=== PATIENT | female | born 1960 | race Caucasian/White ===

== ENCOUNTER 2017-08-20 08:14 | Day surgery (SDC) | payer OTHER ==
[~2017-08-20 08:14] MED LIST: PROPOFOL INJ 200 MG/20 ML VIAL IV ONE
[2017-08-20 10:00] VITALS: BP 95/63
--- NOTE | 2017-08-20 12:36 | Operative Report ---
Operative Report DATE OF SURGERY: 08/20/17 Operative Report: The risks, benefits and alternatives of the procedure including the risks of bleeding, perforation requiring surgery are explained to the patient in detail and informed consent was obtained. Patient was taken back to the endoscopy suite and placed in the left, lateral decubital position. Timeout was called. Propofol medications administered. A rectal examination is done which did not reveal any masses, tears or fissures. An Olympus videoscope was inserted into the patient's rectum. It is carefully guided all the way to the cecum. The cecum was identified by the usual anatomical landmarks of the ileocecal valve as well as the appendiceal office. Prep is good. Photodocumentation was obtained. The scope was then sequentially pulled back via the various segments of the colon including the ascending colon, hepatic flexure, transverse colon, splenic flexure, descending colon finding to the rectosigmoid portions of the colon. Retroflexion maneuvers performed. The risks benefits and alternatives of the procedure explained to the patient in detail and informed consent is obtained.A GIF Olympus video scope was inserted into the patient's mouth and hypopharynx, the esophagus is identified intubated and insufflated, the scope was then advanced through the esophagus stomach and duodenum, retroflexion maneuver is done, the esophagus stomach and first and second portions of the duodenum examined PREOPERATIVE DIAGNOSIS: Anorexia. Weight loss. Change of bowel habits POSTOPERATIVE DIAGNOSIS: Colon polyp with attempted snare polypectomy but no tissue retrieved; the colon polyp is essentially ablated in situ. Internal hemorrhoids. Mild right-sided inflammation status post biopsy. Upper endoscopy reveals esophagitis biopsies obtained to rule out Tavarez's esophagus. Gastritis biopsies obtained to rule out Helicobacter pylori. Duodenitis OPERATION: Colonoscopy with snare polypectomy. Colonoscopy with biopsy. EGD with biopsy SURGEON: MEGAN IQBAL ANESTHESIA: LMAC TISSUE REMOVED OR ALTERED: As described above. COMPLICATIONS: None. ESTIMATED BLOOD LOSS: None. INTRAOPERATIVE FINDINGS: As noted above. PROCEDURE: Patient tolerated procedure well. No immediate postprocedure complications are noted. Patient discharged in good condition. Discharge date August 20, 2017. Discharge diet: Regular. Discharge activity: Regular. 2-3 week follow-up to discuss findings. We will wait on pathology. 5 year surveillance colonoscopy. Patient is instructed to call the office or proceed to the emergency room should there be any further problems or questions.
== END 2017-08-20 09:58 | disposition home or self-care (01) ==
LOC: END 08:14
PROVIDERS: ATTEND Internal Medicine Gastroenterology
PROC: 0DBF8ZX Excision of Right Large Intestine, Via Natural or Artificial Opening Endoscopic, Diagnostic (ICD-10-PCS; 2017-08-20)
PROC: 0DB58ZX Excision of Esophagus, Via Natural or Artificial Opening Endoscopic, Diagnostic (ICD-10-PCS; principal; 2017-08-20 10:30)
PROC: 0DB68ZX Excision of Stomach, Via Natural or Artificial Opening Endoscopic, Diagnostic (ICD-10-PCS; 2017-08-20 10:30)
DX: K20.9 Esophagitis, unspecified (principal); K29.70 Gastritis, unspecified, without bleeding; K29.80 Duodenitis without bleeding; K63.5 Polyp of colon; R63.4 Abnormal weight loss; Z68.21 Body mass index [BMI] 21.0-21.9, adult; M51.36 Other intervertebral disc degeneration, lumbar region; F17.210 Nicotine dependence, cigarettes, uncomplicated; M19.90 Unspecified osteoarthritis, unspecified site; E78.5 Hyperlipidemia, unspecified; E78.00 Pure hypercholesterolemia, unspecified; Z79.899 Other long term (current) drug therapy
CPT/HCPCS: 43239; 45385; 88305 ×2; 88313 ×2; J2704

== ENCOUNTER → 2017-10-10 | Outpatient (CLI) | payer OTHER ==
--- NOTE | 2017-10-10 10:44 | RADIOLOGY REPORT (SQ) ---
EXAM DESCRIPTION: NM HIDA SCAN WITH CCK COMPLETED DATE/TIME: 10/10/2017 10:15 am REASON FOR STUDY: RUQ PAIN (R10.11) R10.11 RIGHT UPPER QUADRANT PAIN COMPARISON: None. RADIONUCLIDE AND DOSE: DOSAGE RADIONUCLIDE: 5 millicuries Tc99m Mebrofenin. DOSAGE CCK: 1.3 micrograms. DOSAGE MORPHINE: Not required. The route of agent administration: Intravenous TECHNIQUE: Serial imaging right upper quadrant up to 60 minutes following injection of radionuclide. CCK injected after gallbladder visualized. LIMITATIONS: None. FINDINGS: LIVER: Normal visualization without areas of photopenia. INTRAHEPATIC BILE DUCTS: Normal size and no delay in visualization. COMMON BILE DUCT: Normal without dilatation. GALLBLADDER: Normal visualization. Calculated ejection fraction of 6%. Normal range is greater ysabel n 35%. PHYSICAL RESPONSE: Patients presenting complaint was mildly reproduced. OTHER: No other significant finding. IMPRESSION: Abnormal gallbladder ejection fraction. TECHNICAL DOCUMENTATION: JOB ID: [id number] [employer]- All Rights Reserved
== END ==
LOC: RAD 07:35
PROVIDERS: ATTEND Family Medicine
DX: R10.11 Right upper quadrant pain (principal)
CPT/HCPCS: 78227; A9537; Q9969; J2805

== ENCOUNTER 2017-10-30 12:09 | Inpatient (IN) | payer OTHER ==
[~2017-10-30 12:09] MED LIST changes: +ACETAMINOPHEN 325 MG TABLET PO PRN; +DEXAMETHASONE SOD PHOSPHATE INJ 4 MG/1 ML VIAL ONE; +GLYCOPYRROLATE INJ 0.4 MG/2 ML VIAL ONE; +LEVOFLOXACIN 500 MG/D5W RTU 500 MG/100 ML RTUPB IV PRN; +NEOSTIGMINE METHYLSULFATE 10 MG/10 ML VIAL ONE; +ONDANSETRON HCL INJ/PF 4 MG/2 ML SDV ONE; -PROPOFOL INJ 200 MG/20 ML VIAL IV ONE; +ROCURONIUM BROMIDE INJ 50 MG/5 ML VIAL IV ONE
[2017-10-30] MEDS ORDERED: BUPIVACAINE HCL 0.25 % INJ/PF (2.5 MG/1 ML) 30 ML VIAL ONE (13:26)
[2017-10-30 14:12] LABS: APPEARANCE,URINE CLEAR; BILIRUBIN,URINE NEGATIVE (NEGATIVE); GLUCOSE, URINE NEGATIVE (NEGATIVE); KETONES,URINE 80 mg/dL (NEGATIVE); LEUKOCYTE ESTERASE,URINE NEGATIVE (NEGATIVE); NITRITE,URINE NEGATIVE (NEGATIVE); PROTEIN,URINE NEGATIVE (NEGATIVE); URINE SPECIFIC GRAVITY 1.025; UROBILINOGEN,URINE NEGATIVE mg/dL (<2.0)
[2017-10-30] MEDS ORDERED: ALBUTEROL SULFATE 0.083% NEB 2.5 MG/3 ML AMPUL NEB ONE (14:34)
[2017-10-30 14:51] LABS: ABSOLUTE BASOPHILS # (AUTO) 0.1 10^3/uL (0.0-0.2); ABSOLUTE EOSINOPHILS # (AUTO) 0.1 10^3/uL (0.0-0.6); ABSOLUTE LYMPHOCYTES (AUTO) 2.7 10^3/uL (0.5-4.7); ABSOLUTE MONOCYTES (AUTO) 0.4 10^3/uL (0.1-1.4); BASOPHILS % (AUTO) 0.9 % (0-2); EOSINOPHILS % (AUTO) 1.9 % (0-6); HEMATOCRIT 39.2 % (36.0-47.0); HEMOGLOBIN 13.7 g/dL (12.0-15.5); HGB HCT DIFFERENCE 1.9; LYMPHOCYTES % (AUTO) 36.9 % (13-45); MEAN CORPUSCULAR VOLUME 89 fl (80-97); MONOCYTES % (AUTO) 5.6 % (3-13); RED BLOOD COUNT 4.42 10^6/uL (3.72-5.28); RED CELL DISTRIBUTION WIDTH 13.5 % (11.5-14.0); SEGMENTED NEUTROPHILS % (AUTO) 54.7 % (42-78); WHITE BLOOD COUNT 7.4 10^3/uL (4.0-10.5)
[2017-10-30 15:17] LABS: ALANINE AMINOTRANSFERASE 28 U/L (9-52); ALBUMIN 4.3 g/dL (3.5-5.0); ALKALINE PHOSPHATASE 71 U/L (38-126); ANION GAP 13 (5-19); ASPARTATE AMINO TRANSFERASE 17 U/L (14-36); BILIRUBIN,DIRECT 0.4 mg/dL (0.0-0.4); BILIRUBIN,TOTAL 0.6 mg/dL (0.2-1.3); BLOOD UREA NITROGEN 14 mg/dL (7-20); CALCIUM 9.8 mg/dL (8.4-10.2); CARBON DIOXIDE 21 mmol/L (22-30); CHLORIDE 108 mmol/L (98-107); CREATININE RESULT 0.79 mg/dL (0.52-1.25); GLUCOSE 80 mg/dL (75-110); LIPASE 1190.4 U/L (23-300); SODIUM 142.1 mmol/L (137-145)
[2017-10-30] MEDS ORDERED: HYDROMORPHONE HCL INJ/PF 2 MG/ML AMPULE ONE (16:06)
[2017-10-30] MEDS ORDERED: ACETAMINOPHEN 0 ML IV ONE (16:06)
[2017-10-30] MEDS ORDERED: PROPOFOL INJ 200 MG/20 ML VIAL IV ONE (16:06)
[2017-10-30] MEDS ORDERED: MIDAZOLAM 2 MG/2 ML INJ ONE (16:06)
[2017-10-30] MEDS ORDERED: EPHEDRINE SULFATE INJ 50 MG/1 ML AMPULE ONE (16:06)
[2017-10-30] MEDS ORDERED: FENTANYL CITRATE INJ/PF 100 MCG/2 ML AMPUL ONE ×2 (16:07)
[2017-10-30] MEDS ORDERED: DEXTROSE 5%-1/2 NORMAL SALINE 1,000 ML IV PRN (16:30)
[2017-10-30] MEDS ORDERED: GLUCAGON,HUMAN RECOMB 1 MG INJ SUBCUT PRN (16:30)
[2017-10-30] MEDS ORDERED: HYDROMORPHONE HCL INJ/PF 2 MG/ML AMPULE IV PRN (16:30)
[2017-10-30] MEDS ORDERED: DEXTROSE 50%-WATER 25 GM/50 ML DISP.SYRIN IV PRN ×2 (16:30)
[2017-10-30] MEDS ORDERED: DEXTROSE 40% GEL 15 GM TUBE PO PRN ×2 (16:30)
--- NOTE | 2017-10-30 16:30 | PDOC H&P ---
History of Present Illness Admission Date/PCP: JOSE L MERRILL MD Patient complains of: Abdominal pain History of Present Illness: KAREN BIRMINGHAM is a 57 year old female Who has been experiencing epigastric and right upper quadrant abdominal pain radiating to her back for approximately a year. She has had associated with weight loss. She has had an extensive workup including upper and lower endoscopy ultrasound CT scan and CCK HIDA study. Upper endoscopy was only remarkable for mild duodenitis. CT scan only demonstrated mild decrease attenuation of the liver. Pancreas appeared normal on the CT scan. Patient notes that her ultrasound was read as normal. However CCK HIDA study demonstrated an ejection fraction of 5% reproduction of her symptoms. Patient has a history of alcohol abuse in the past but has not drank in over 8 years. She has had no history of pancreatitis in the past. Patient was scheduled today for a laparoscopic cholecystectomy for biliary dyskinesia however on preoperative laboratory testing she was noted with elevated lipase of 1190. Her liver function studies were completely normal. She does note increased epigastric abdominal pain over the last several days. He denies any shortness of breath and she denies any fevers. Past Medical History Cardiac Medical History: Denies: Coronary Artery Disease, Myocardial Infarction, Hypertension Pulmonary Medical History: Denies: Asthma, Bronchitis, Chronic Obstructive Pulmonary Disease (COPD), Pneumonia Neurological Medical History: Denies: Seizures Musculoskeltal Medical History: Reports: Arthritis - RICARDO. HANDS Hematology: Denies: Anemia Past Surgical History Past Surgical History: Reports: Tubal Ligation Social History Smoking Status: Former Smoker Frequency of Alcohol Use: None - Prior history of alcohol abuse but not for the last 8 years. Family History Family History: Reviewed & Not Pertinent Parental Family History Reviewed: No Children Family History Reviewed: No Sibling(s) Family History Reviewed.: No Medication/Allergy Home Medications: Alprazolam [Xanax] 1 tab PO DAILY 08/16/17 Tramadol HCl [Conzip] 100 mg PO ASDIR PRN 09/24/17 Aspirin [Aspirin EC] 81 mg PO DAILY 10/30/17 Allergies/Adverse Reactions: Penicillins Allergy (Intermediate, Verified 10/30/17 13:50) Hives Physical Exam Vital Signs: Temp Pulse Resp BP Pulse Ox 98.1 F 72 14 112/83 98 10/30/17 13:30 10/30/17 14:30 10/30/17 14:30 10/30/17 13:30 10/30/17 14:30 Intake & Output 10/29/17 10/30/17 10/31/17 06:59 06:59 06:59 Intake Total 0 Balance 0 Weight 62.14 kg 62.14 kg General appearance: PRESENT: no acute distress, cooperative Eye exam: PRESENT: conjunctiva pink Neck exam: PRESENT: other - Supple and nontender. Respiratory exam: PRESENT: clear to auscultation ricardo Cardiovascular exam: PRESENT: RRR GI/Abdominal exam: PRESENT: other - Soft, nondistended, mild diffuse abdominal tenderness without peritoneal signs. Extremities exam: PRESENT: other - No swelling. Neurological exam: PRESENT: alert, awake Psychiatric exam: PRESENT: appropriate affect Skin exam: PRESENT: warm Results Laboratory Results: 10/30/17 14:28 10/30/17 14:28 10/30/17 10/30/17 10/30/17 13:30 14:28 14:28 WBC 7.4 RBC 4.42 Hgb 13.7 Hct 39.2 MCV 89 MCH 31.0 MCHC 35.0 RDW 13.5 Plt Count 249 Seg Neutrophils % 54.7 Lymphocytes % 36.9 Monocytes % 5.6 Eosinophils % 1.9 Basophils % 0.9 Absolute Neutrophils 4.0 Absolute Lymphocytes 2.7 Absolute Monocytes 0.4 Absolute Eosinophils 0.1 Absolute Basophils 0.1 Sodium 142.1 Potassium 4.0 Chloride 108 H Carbon Dioxide 21 L Anion Gap 13 BUN 14 Creatinine 0.79 Est GFR ( Amer) > 60 Est GFR (Non-Af Amer) > 60 Glucose 80 Calcium 9.8 Total Bilirubin 0.6 AST 17 ALT 28 Alkaline Phosphatase 71 Total Protein 7.0 Albumin 4.3 Lipase 1190.4 H Urine Color YELLOW Urine Appearance CLEAR Urine pH 5.0 Ur Specific [place] 1.025 Urine Protein NEGATIVE Urine Glucose (UA) NEGATIVE Urine Ketones 80 H Urine Blood NEGATIVE Urine Nitrite NEGATIVE Ur Leukocyte Esterase NEGATIVE Urine WBC (Auto) 0 Urine RBC (Auto) 0 Assessment & Plan - Diagnosis (1) Pancreatitis Qualifiers: Chronicity: acute Pancreatitis type: biliary Is this a current diagnosis for this admission?: Yes Plan: In light of the marked elevation of her lipase, the most likely etiology is biliary Pancreatitis. She has no evidence of pancreatic calcifications therefore I do not think she has chronic pancreatitis. She has a remote history of alcohol abuse but none for the last 8 years. With her evident pancreatitis I will admit the patient for IV fluids, IV pain control, bowel rest. When her lipase has come down I will plan laparoscopic cholecystectomy. I will check triglyceride level.
[2017-10-30] MEDS: ONDANSETRON HCL INJ/PF 4 MG/2 ML SDV IV PRN (18:46)
[2017-10-31] MEDS: ONDANSETRON HCL INJ/PF 4 MG/2 ML SDV IV PRN ×2 (03:57→18:33)
[2017-10-31 06:03] LABS: HEMATOCRIT 40.8 % (36.0-47.0); HEMOGLOBIN 13.9 g/dL (12.0-15.5); HGB HCT DIFFERENCE 0.9; MEAN CORPUSCULAR HEMOGLOBIN 30.2 pg (27.0-33.4); MEAN CORPUSCULAR VOLUME 89 fl (80-97); RED BLOOD COUNT 4.59 10^6/uL (3.72-5.28); RED CELL DISTRIBUTION WIDTH 13.6 % (11.5-14.0); WHITE BLOOD COUNT 7.7 10^3/uL (4.0-10.5)
[2017-10-31 06:05] LABS: ALANINE AMINOTRANSFERASE 25 U/L (9-52); ALKALINE PHOSPHATASE 69 U/L (38-126); ANION GAP 14 (5-19); ASPARTATE AMINO TRANSFERASE 23 U/L (14-36); BILIRUBIN,DIRECT 0.2 mg/dL (0.0-0.4); BILIRUBIN,TOTAL 0.5 mg/dL (0.2-1.3); BLOOD UREA NITROGEN 13 mg/dL (7-20); CALCIUM 9.2 mg/dL (8.4-10.2); CARBON DIOXIDE 23 mmol/L (22-30); CHLORIDE 109 mmol/L (98-107); CHOLESTEROL 249.56 mg/dL (0-200); CREATININE RESULT 0.79 mg/dL (0.52-1.25); Direct HDL 47 mg/dL (>40); GLUCOSE 82 mg/dL (75-110); LIPASE 1697.4 U/L (23-300); POTASSIUM 3.9 mmol/L (3.6-5.0); SODIUM 145.6 mmol/L (137-145); TOTAL PROTEIN 6.8 g/dL (6.3-8.2); TRIGLYCERIDES 123 mg/dL (<150)
[2017-10-31 06:16] LABS: DIRECT LDL 164 mg/dL (<100)
[2017-10-31] MEDS ORDERED: KETOROLAC TROMETHAMINE INJ/PF 30 MG/1 ML SDV IV PRN (08:08)
[2017-10-31] MEDS: ASPIRIN 81 MG TABLET, ENT COATED PO SCH (09:37)
--- NOTE | 2017-10-31 11:12 | PDOC CONSULTATION ---
Consultation Consult Date: 10/31/17 Attending physician:: MEGAN IQBAL Consult reason:: Abdominal pain History of Present Illness Admission Date/PCP: JOSE L MERRILL MD History of Present Illness: patient was scheduled for possible lap cholecystectomy, labs was noted to have an elevated lipase no other LFT abnormalities patient does not have biliary dilation was admitted on the surgical service waiting for resolution of the patient's lipase likely has elevated lipase to possible passage of gallstone has had EGD and colonoscopy in the past no hematemesis no rectal bleeding Past Medical History Cardiac Medical History: Denies: Coronary Artery Disease, Myocardial Infarction, Hypertension Pulmonary Medical History: Denies: Asthma, Bronchitis, Chronic Obstructive Pulmonary Disease (COPD), Pneumonia Neurological Medical History: Denies: Seizures Musculoskeltal Medical History: Reports: Arthritis - KASHIF. HANDS Hematology: Denies: Anemia Past Surgical History Past Surgical History: Reports: Tubal Ligation Social History Information Source: Patient Lives with: Spouse/Significant other Smoking Status: Never Smoker Frequency of Alcohol Use: None - Prior history of alcohol abuse but not for the last 8 years. Family History Family History: Reviewed & Not Pertinent Parental Family History Reviewed: Yes Children Family History Reviewed: Unknown Sibling(s) Family History Reviewed.: Unknown Medication/Allergy Home Medications: Alprazolam [Xanax] 1 tab PO DAILY 08/16/17 Tramadol HCl [Conzip] 100 mg PO ASDIR PRN 09/24/17 Aspirin [Aspirin EC] 81 mg PO DAILY 10/30/17 Allergies/Adverse Reactions: Penicillins Allergy (Intermediate, Verified 10/30/17 13:50) Hives Review of Systems Constitutional: ABSENT: fever(s), headache(s), night sweats, weakness Ears: ABSENT: hearing changes Cardiovascular: ABSENT: edema, orthropnea Respiratory: ABSENT: dyspnea, hemoptysis Gastrointestinal: ABSENT: diarrhea, heartburn, nausea, vomiting Genitourinary: ABSENT: dysuria, hematuria Musculoskeletal: ABSENT: deformity, joint swelling Neurological: ABSENT: syncope, tingling, tremor(s), vertigo Endocrine: ABSENT: polydipsia, polyphagia, polyuria Hematologic/Lymphatic: ABSENT: easy bruising Physical Exam Vital Signs: Temp Pulse Resp BP Pulse Ox 97.4 F 62 16 114/68 100 10/31/17 08:00 10/31/17 08:00 10/31/17 08:00 10/31/17 08:00 10/31/17 08:00 Intake & Output 10/30/17 10/31/17 11/01/17 06:59 06:59 06:59 Intake Total 0 Output Total 300 Balance -300 Weight 62.14 kg 63.3 kg General appearance: PRESENT: no acute distress, well-developed, well-nourished Head exam: PRESENT: atraumatic, normocephalic Eye exam: PRESENT: EOMI, PERRLA. ABSENT: nystagmus, scleral icterus Mouth exam: PRESENT: moist, neck supple Throat exam: ABSENT: tonsillar exudate, tonsillogmegaly Neck exam: ABSENT: meningismus, tenderness, thyromegaly Respiratory exam: PRESENT: symmetrical, unlabored. ABSENT: tachypnea, wheezes Cardiovascular exam: PRESENT: RRR, +S1, +S2 GI/Abdominal exam: PRESENT: soft. ABSENT: rebound, rigid, tenderness Extremities exam: ABSENT: joint swelling, pedal edema Musculoskeletal exam: PRESENT: full ROM Neurological exam: PRESENT: oriented to time, oriented to situation, reflexes normal, CN II-XII grossly intact Focused psych exam: ABSENT: restlessness Skin exam: PRESENT: normal color. ABSENT: mottled, pallor, urticaria, vesicles Results Laboratory Results: 10/31/17 05:00 10/31/17 05:00 10/30/17 10/30/17 10/30/17 13:30 14:28 14:28 WBC 7.4 RBC 4.42 Hgb 13.7 Hct 39.2 MCV 89 MCH 31.0 MCHC 35.0 RDW 13.5 Plt Count 249 Seg Neutrophils % 54.7 Lymphocytes % 36.9 Monocytes % 5.6 Eosinophils % 1.9 Basophils % 0.9 Absolute Neutrophils 4.0 Absolute Lymphocytes 2.7 Absolute Monocytes 0.4 Absolute Eosinophils 0.1 Absolute Basophils 0.1 Sodium 142.1 Potassium 4.0 Chloride 108 H Carbon Dioxide 21 L Anion Gap 13 BUN 14 Creatinine 0.79 Est GFR ( Amer) > 60 Est GFR (Non-Af Amer) > 60 Glucose 80 Calcium 9.8 Total Bilirubin 0.6 AST 17 ALT 28 Alkaline Phosphatase 71 Total Protein 7.0 Albumin 4.3 Triglycerides Cholesterol LDL Cholesterol Direct VLDL Cholesterol HDL Cholesterol Lipase 1190.4 H Urine Color YELLOW Urine Appearance CLEAR Urine pH 5.0 Ur Specific [place] 1.025 Urine Protein NEGATIVE Urine Glucose (UA) NEGATIVE Urine Ketones 80 H Urine Blood NEGATIVE Urine Nitrite NEGATIVE Ur Leukocyte Esterase NEGATIVE Urine WBC (Auto) 0 Urine RBC (Auto) 0 10/31/17 10/31/17 05:00 05:00 WBC 7.7 RBC 4.59 Hgb 13.9 Hct 40.8 MCV 89 MCH 30.2 MCHC 34.0 RDW 13.6 Plt Count 220 Seg Neutrophils % Lymphocytes % Monocytes % Eosinophils % Basophils % Absolute Neutrophils Absolute Lymphocytes Absolute Monocytes Absolute Eosinophils Absolute Basophils Sodium 145.6 H Potassium 3.9 Chloride 109 H Carbon Dioxide 23 Anion Gap 14 BUN 13 Creatinine 0.79 Est GFR ( Amer) > 60 Est GFR (Non-Af Amer) > 60 Glucose 82 Calcium 9.2 Total Bilirubin 0.5 AST 23 ALT 25 Alkaline Phosphatase 69 Total Protein 6.8 Albumin 4.0 Triglycerides 123 Cholesterol 249.56 H LDL Cholesterol Direct 164 H VLDL Cholesterol 25.0 HDL Cholesterol 47 Lipase 1697.4 H Urine Color Urine Appearance Urine pH Ur Specific [place] Urine Protein Urine Glucose (UA) Urine Ketones Urine Blood Urine Nitrite Ur Leukocyte Esterase Urine WBC (Auto) Urine RBC (Auto) Assessment & Plan - Diagnosis (1) Pancreatitis Qualifiers: Chronicity: acute Pancreatitis type: biliary Is this a current diagnosis for this admission?: Yes Plan: agree with planned admission does not require ERCP since normal LFT's as per surgical recommendations to proceed with surgery once pancreatitis has resolved patient could have had passage of stone with biliary obstruction - Time Time Spent: 50 to 70 Minutes
--- NOTE | 2017-10-31 12:10 | PDOC PROGRESS REPORT ---
Subjective Progress Note for:: 10/31/17 Subjective:: Having some abdominal pain but has improved from yesterday. Reason For Visit: K82.8 OTHER SPECIFIED DISEASES OF GALLBLADD, R10.9 Physical Exam Vital Signs: Temp Pulse Resp BP Pulse Ox 97.4 F 62 16 114/68 100 10/31/17 08:00 10/31/17 08:00 10/31/17 08:00 10/31/17 08:00 10/31/17 08:00 Intake & Output 10/30/17 10/31/17 11/01/17 06:59 06:59 06:59 Intake Total 0 Output Total 300 Balance -300 Weight 62.14 kg 63.3 kg General appearance: PRESENT: no acute distress, cooperative Respiratory exam: PRESENT: clear to auscultation ricardo Cardiovascular exam: PRESENT: RRR GI/Abdominal exam: PRESENT: other - Soft, nondistended, mild diffuse abdominal tenderness without peritoneal signs. Extremities exam: PRESENT: other - No swelling Results Laboratory Results: 10/31/17 05:00 10/31/17 05:00 10/30/17 10/30/17 10/30/17 13:30 14:28 14:28 WBC 7.4 RBC 4.42 Hgb 13.7 Hct 39.2 MCV 89 MCH 31.0 MCHC 35.0 RDW 13.5 Plt Count 249 Seg Neutrophils % 54.7 Lymphocytes % 36.9 Monocytes % 5.6 Eosinophils % 1.9 Basophils % 0.9 Absolute Neutrophils 4.0 Absolute Lymphocytes 2.7 Absolute Monocytes 0.4 Absolute Eosinophils 0.1 Absolute Basophils 0.1 Sodium 142.1 Potassium 4.0 Chloride 108 H Carbon Dioxide 21 L Anion Gap 13 BUN 14 Creatinine 0.79 Est GFR ( Amer) > 60 Est GFR (Non-Af Amer) > 60 Glucose 80 Calcium 9.8 Total Bilirubin 0.6 AST 17 ALT 28 Alkaline Phosphatase 71 Total Protein 7.0 Albumin 4.3 Triglycerides Cholesterol LDL Cholesterol Direct VLDL Cholesterol HDL Cholesterol Lipase 1190.4 H Urine Color YELLOW Urine Appearance CLEAR Urine pH 5.0 Ur Specific [place] 1.025 Urine Protein NEGATIVE Urine Glucose (UA) NEGATIVE Urine Ketones 80 H Urine Blood NEGATIVE Urine Nitrite NEGATIVE Ur Leukocyte Esterase NEGATIVE Urine WBC (Auto) 0 Urine RBC (Auto) 0 10/31/17 10/31/17 05:00 05:00 WBC 7.7 RBC 4.59 Hgb 13.9 Hct 40.8 MCV 89 MCH 30.2 MCHC 34.0 RDW 13.6 Plt Count 220 Seg Neutrophils % Lymphocytes % Monocytes % Eosinophils % Basophils % Absolute Neutrophils Absolute Lymphocytes Absolute Monocytes Absolute Eosinophils Absolute Basophils Sodium 145.6 H Potassium 3.9 Chloride 109 H Carbon Dioxide 23 Anion Gap 14 BUN 13 Creatinine 0.79 Est GFR ( Amer) > 60 Est GFR (Non-Af Amer) > 60 Glucose 82 Calcium 9.2 Total Bilirubin 0.5 AST 23 ALT 25 Alkaline Phosphatase 69 Total Protein 6.8 Albumin 4.0 Triglycerides 123 Cholesterol 249.56 H LDL Cholesterol Direct 164 H VLDL Cholesterol 25.0 HDL Cholesterol 47 Lipase 1697.4 H Urine Color Urine Appearance Urine pH Ur Specific [place] Urine Protein Urine Glucose (UA) Urine Ketones Urine Blood Urine Nitrite Ur Leukocyte Esterase Urine WBC (Auto) Urine RBC (Auto) Assessment & Plan - Diagnosis (1) Pancreatitis Qualifiers: Chronicity: acute Pancreatitis type: biliary Is this a current diagnosis for this admission?: Yes Plan: Abdominal exam has improved but her lipase has increased even more today. Will obtain an MRCP today. hold off laparoscopic cholecystectomy.
--- NOTE | 2017-10-31 14:31 | RADIOLOGY REPORT (SQ) ---
EXAM DESCRIPTION: MRI ABDOMEN WITHOUT COMPLETED DATE/TIME: 10/31/2017 1:36 pm REASON FOR STUDY: Please perform MRCP. Patient with pancreatitis K82.8 OTHER SPECIFIED DISEASES OF GALLBLADDER R10.9 UNSPECIFIED ABDOMINAL PAIN COMPARISON: Outside ultrasound report 10/02/2017 Hepatobiliary scan 10/10/2017 TECHNIQUE: Noncontrast MRCP. Source and MIP images reviewed. LIMITATIONS: None. FINDINGS: GALLBLADDER: Normal. INTRAHEPATIC DUCTS: Nondilated. EXTRAHEPATIC DUCTS: Common duct is normal caliber. No dilatation of the pancreatic duct. No ductal filling defects noted. PANCREAS: Generally homogeneous, no gross mass or significant signal alteration. No surrounding infl ammatory changes or fluid. Pancreatic duct is normal. LIVER, SPLEEN, KIDNEYS, ADRENALS: No significant abnormality. VESSELS: No evidence of aneurysm. Grossly appropriate flow voids in the major vascular structures. LUNG BASES: Grossly clear. OTHER: There is a small gastric fundal diverticulum on axial CT image 5. Hemangioma T10 vertebral remigio dy. Bilateral L4-5 facet arthropathy IMPRESSION: NORMAL HEPATOBILIARY SYSTEM. NO STONES OR COMMON DUCT ABNORMALITIES. NO MRI EVIDENCE OF ACUTE PANCREATITIS TECHNICAL DOCUMENTATION: JOB ID: [id number] [employer]- All Rights Reserved
[2017-10-31] MEDS: ENOXAPARIN SODIUM INJ 40 MG/0.4 ML DISP.SYRIN SUBCUT SCH (14:42)
[2017-11-01 05:44] LABS: ALANINE AMINOTRANSFERASE 27 U/L (9-52); ALBUMIN 4.1 g/dL (3.5-5.0); ALKALINE PHOSPHATASE 68 U/L (38-126); ANION GAP 11 (5-19); ASPARTATE AMINO TRANSFERASE 20 U/L (14-36); BILIRUBIN,DIRECT 0.2 mg/dL (0.0-0.4); BILIRUBIN,TOTAL 0.5 mg/dL (0.2-1.3); BLOOD UREA NITROGEN 9 mg/dL (7-20); CALCIUM 9.3 mg/dL (8.4-10.2); CARBON DIOXIDE 22 mmol/L (22-30); CHLORIDE 110 mmol/L (98-107); CREATININE RESULT 0.78 mg/dL (0.52-1.25); GLUCOSE 95 mg/dL (75-110); LIPASE 467.3 U/L (23-300); POTASSIUM 4.1 mmol/L (3.6-5.0); SODIUM 143.4 mmol/L (137-145); TOTAL PROTEIN 6.7 g/dL (6.3-8.2)
--- NOTE | 2017-11-01 07:31 | PDOC PROGRESS REPORT ---
Subjective Progress Note for:: 11/01/17 Subjective:: no significant events overnight MRCP is negative lipase has trended down should be able to proceed with lap Katie denies any diarrhea there is no fever or chills CBC remains in the normal range Reason For Visit: K82.8 OTHER SPECIFIED DISEASES OF GALLBLADD, R10.9 Physical Exam Vital Signs: Temp Pulse Resp BP Pulse Ox 97.6 F 53 L 17 110/74 100 10/31/17 23:21 10/31/17 23:21 10/31/17 23:21 10/31/17 23:21 10/31/17 23:21 Intake & Output 10/31/17 11/01/17 11/02/17 06:59 06:59 06:59 Intake Total 0 900 Output Total 300 Balance -300 900 Weight 63.3 kg 83.4 kg General appearance: PRESENT: no acute distress, well-developed, well-nourished Head exam: PRESENT: atraumatic, normocephalic Eye exam: PRESENT: EOMI, PERRLA. ABSENT: periorbital swelling, scleral icterus Mouth exam: PRESENT: moist Throat exam: ABSENT: tonsillar exudate, tonsillogmegaly Neck exam: ABSENT: meningismus, tenderness, thyromegaly Respiratory exam: PRESENT: symmetrical, unlabored. ABSENT: tachypnea, wheezes Cardiovascular exam: PRESENT: RRR, +S1, +S2 GI/Abdominal exam: PRESENT: soft. ABSENT: rebound, rigid, tenderness Extremities exam: ABSENT: joint swelling Musculoskeletal exam: PRESENT: full ROM Neurological exam: PRESENT: alert, awake, oriented to time, oriented to situation, CN II-XII grossly intact Skin exam: PRESENT: normal color. ABSENT: mottled, pallor, petechiae, urticaria , vesicles Results Laboratory Results: 10/31/17 05:00 11/01/17 04:55 11/01/17 04:55 Sodium 143.4 Potassium 4.1 Chloride 110 H Carbon Dioxide 22 Anion Gap 11 BUN 9 Creatinine 0.78 Est GFR ( Amer) > 60 Est GFR (Non-Af Amer) > 60 Glucose 95 Calcium 9.3 Total Bilirubin 0.5 AST 20 ALT 27 Alkaline Phosphatase 68 Total Protein 6.7 Albumin 4.1 Lipase 467.3 H Impressions: Abdomen MRI 10/31/17 00:00 IMPRESSION: NORMAL HEPATOBILIARY SYSTEM. NO STONES OR COMMON DUCT ABNORMALITIES. NO MRI EVIDENCE OF ACUTE PANCREATITIS Assessment & Plan - Diagnosis (1) Pancreatitis Qualifiers: Chronicity: acute Pancreatitis type: biliary Is this a current diagnosis for this admission?: Yes (2) Biliary dyskinesia Plan: should be able to proceed with surgery her lipase is trending down MRCP is negative and no signs of cholangitis will let surgery decide on appropriate timing - Time Time Spent with patient: 15-24 minutes
--- NOTE | 2017-11-01 09:31 | PDOC PROGRESS REPORT ---
Subjective Progress Note for:: 11/01/17 Subjective:: Abdomen feels much better. Denies any abdominal pain. Reason For Visit: K82.8 OTHER SPECIFIED DISEASES OF GALLBLADD, R10.9 Physical Exam Vital Signs: Temp Pulse Resp BP Pulse Ox 97.6 F 58 L 16 117/69 99 11/01/17 07:53 11/01/17 07:53 11/01/17 07:53 11/01/17 07:53 11/01/17 07:53 Intake & Output 10/31/17 11/01/17 11/02/17 06:59 06:59 06:59 Intake Total 0 900 Output Total 300 Balance -300 900 Weight 63.3 kg 83.4 kg General appearance: PRESENT: no acute distress, cooperative Respiratory exam: PRESENT: clear to auscultation ricardo Cardiovascular exam: PRESENT: RRR GI/Abdominal exam: PRESENT: other - Soft, nondistended, nontender to palpation. Results Laboratory Results: 10/31/17 05:00 11/01/17 04:55 11/01/17 04:55 Sodium 143.4 Potassium 4.1 Chloride 110 H Carbon Dioxide 22 Anion Gap 11 BUN 9 Creatinine 0.78 Est GFR ( Amer) > 60 Est GFR (Non-Af Amer) > 60 Glucose 95 Calcium 9.3 Total Bilirubin 0.5 AST 20 ALT 27 Alkaline Phosphatase 68 Total Protein 6.7 Albumin 4.1 Lipase 467.3 H Impressions: Abdomen MRI 10/31/17 00:00 IMPRESSION: NORMAL HEPATOBILIARY SYSTEM. NO STONES OR COMMON DUCT ABNORMALITIES. NO MRI EVIDENCE OF ACUTE PANCREATITIS Assessment & Plan - Diagnosis (1) Pancreatitis Qualifiers: Chronicity: acute Pancreatitis type: biliary Is this a current diagnosis for this admission?: Yes Plan: Although lipase is still elevated, this level has markedly diminished and she is pain-free all consistent with resolved pancreatitis. MRCP demonstrated normal-appearing pancreas with no ductal abnormalities. Her clinical course is most consistent with sludge pancreatitis. Will proceed with laparoscopic cholecystectomy. Patient understands the risk and benefits of the procedure including risk of possibility of conversion to an open procedure, risk of infection, bleeding, common bile duct and intestinal injury, postcholecystectomy diarrhea, and mistaken diagnosis. Patient understands and agrees to proceed.
[2017-11-01] MEDS: ENOXAPARIN SODIUM INJ 40 MG/0.4 ML DISP.SYRIN SUBCUT SCH (09:51)
[2017-11-01] MEDS: ASPIRIN 81 MG TABLET, ENT COATED PO SCH (09:51)
[2017-11-01] MEDS ORDERED: LEVOFLOXACIN 750 MG/D5W RTU 750 MG/150 ML RTUPB IV ONE (11:13)
[2017-11-01] MEDS ORDERED: BUPIVACAINE HCL 0.25 % INJ/PF (2.5 MG/1 ML) 30 ML VIAL ONE (11:15)
[2017-11-01] MEDS ORDERED: EPHEDRINE SULFATE INJ 50 MG/1 ML AMPULE ONE (11:33)
[2017-11-01] MEDS ORDERED: HYDROMORPHONE HCL INJ/PF 2 MG/ML AMPULE ONE (11:33)
[2017-11-01] MEDS ORDERED: ACETAMINOPHEN 100 ML IV ONE (11:33)
[2017-11-01] MEDS ORDERED: PROPOFOL INJ 200 MG/20 ML VIAL IV ONE (11:33)
[2017-11-01] MEDS ORDERED: FENTANYL CITRATE INJ/PF 100 MCG/2 ML AMPUL ONE (11:33)
[2017-11-01] MEDS ORDERED: MIDAZOLAM 2 MG/2 ML INJ ONE (11:33)
[2017-11-01] MEDS ORDERED: FENTANYL CITRATE INJ/PF 100 MCG/2 ML AMPUL IV PRN ×3 (13:17)
[2017-11-01] MEDS ORDERED: PROMETHAZINE HCL INJ 25 MG/1 ML VIAL IV PRN (13:17)
[2017-11-01] MEDS ORDERED: DIPHENHYDRAMINE HCL 50 MG/ML VIAL IV PRN (13:17)
[2017-11-01] MEDS ORDERED: MEPERIDINE HCL/PF INJ 25 MG/1 ML DISP.SYRIN IV PRN (13:17)
[2017-11-01] MEDS ORDERED: PROMETHAZINE HCL INJ 25 MG/1 ML VIAL ONE (13:59)
[2017-11-01] MEDS ORDERED: ONDANSETRON HCL INJ/PF 4 MG/2 ML SDV ONE (14:38)
--- NOTE | 2017-11-01 20:12 | PDOC PROGRESS REPORT ---
Subjective Progress Note for:: 11/01/17 Subjective:: Patient feels well. No abdominal pain. Wants to go home. Reason For Visit: K82.8 OTHER SPECIFIED DISEASES OF GALLBLADD, R10.9 Physical Exam Vital Signs: Temp Pulse Resp BP Pulse Ox 97 F L 70 17 110/65 98 11/01/17 18:50 11/01/17 18:50 11/01/17 18:50 11/01/17 18:50 11/01/17 18:50 Intake & Output 10/31/17 11/01/17 11/02/17 06:59 06:59 06:59 Intake Total 0 900 1600 Output Total 300 320 Balance -713 588 3934 Weight 63.3 kg 83.4 kg General appearance: PRESENT: no acute distress, cooperative Respiratory exam: PRESENT: clear to auscultation ricardo Cardiovascular exam: PRESENT: RRR GI/Abdominal exam: PRESENT: other - Soft, nondistended, nontender to palpation. Results Laboratory Results: 10/31/17 05:00 11/01/17 04:55 11/01/17 04:55 Sodium 143.4 Potassium 4.1 Chloride 110 H Carbon Dioxide 22 Anion Gap 11 BUN 9 Creatinine 0.78 Est GFR ( Amer) > 60 Est GFR (Non-Af Amer) > 60 Glucose 95 Calcium 9.3 Total Bilirubin 0.5 AST 20 ALT 27 Alkaline Phosphatase 68 Total Protein 6.7 Albumin 4.1 Lipase 467.3 H Impressions: Abdomen MRI 10/31/17 00:00 IMPRESSION: NORMAL HEPATOBILIARY SYSTEM. NO STONES OR COMMON DUCT ABNORMALITIES. NO MRI EVIDENCE OF ACUTE PANCREATITIS Assessment & Plan - Diagnosis (1) Pancreatitis Qualifiers: Chronicity: acute Pancreatitis type: biliary Is this a current diagnosis for this admission?: Yes Plan: Resolved biliary pancreatitis. Did well after laparoscopic cholecystectomy. Will start clear liquids. If patient does well will discharge patient home tonight.
--- NOTE | 2017-11-01 20:21 | Operative Report ---
Operative Report DATE OF SURGERY: 11/01/17 PREOPERATIVE DIAGNOSIS: Biliary pancreatitis POSTOPERATIVE DIAGNOSIS: Biliary pancreatitis OPERATION: Laparoscopic cholecystectomy SURGEON: PAUL CAMARGO ANESTHESIA: GA TISSUE REMOVED OR ALTERED: gallbladder COMPLICATIONS: None ESTIMATED BLOOD LOSS: Minimal INTRAOPERATIVE FINDINGS: Normal-appearing liver, anterior portion of the stomach and duodenum, right colon, appendix, bilateral ovaries, sigmoid colon, distal small bowel and anterior abdominal wall. Distended gallbladder. PROCEDURE: Informed consent was obtained. Patient was brought to the operating room placed operating table in supine position. After satisfactory induction of general anesthesia, patient's abdomen was prepped and draped in usual sterile fashion. A infraumbilical midline incision was made and dissection carried down to the fascia the peritoneal cavity entered without difficulty. Howell trocar was inserted. Pneumoperitoneum produced good patient toleration. 5 mm trocar was placed in the subxiphoid location.Two 5 mm trochars were placed in the right subcostal location. Expiratory laparoscopy was performed first. Liver appeared normal. The gallbladder appeared distended but otherwise appeared normal. The anterior surface of the stomach and first and second portion of the duodenum appeared normal. The right colon appeared normal as did the appendix. Both of the ovaries appear normal. The sigmoid colon appeared normal. The small bowel was not run but the visualized portion of the small bowel appeared normal. The anterior abdominal wall appeared normal with no masses and no hernias. The gallbladder was grasped and retracted cephalad over the dome of the liver. The infundibulum of the gallbladder was grasped retracted laterally and inferiorly thus exposing calot's triangle. The cystic duct gallbladder junction was clearly identified and the cystic duct was clipped and divided. Cystic artery was likewise taken. The gallbladder was taken off the gallbladder bed using the hook electrocautery technique. The gallbladder was removed with an Endobag through the Howell trocar site fascial defect. Hemostasis appeared excellent. All trochars were removed under the direct vision a laparoscope to ensure hemostasis. The Howell trocar site fascial defect was closed with interrupted Vicryl sutures. All skin incisions were closed with subcuticular interrupted Monocryl sutures. Marcaine was injected at the port sites. Patient tolerated procedure well no apparent complications and was taken to the recovery area in stable condition.
[2017-11-01 20:40] VITALS: BP 116/68
--- NOTE | 2017-11-01 21:04 | DISCHARGE SUMMARY E ---
Discharge Summary NAME: KAREN B[place]MINGHAM : 1960 AGE: 57Y ADMITTED: 10/30/2017 DISCHARGED: 11/01/2017 DISCHARGE DIAGNOSIS: Biliary pancreatitis. PROCEDURE PERFORMED DURING HOSPITALIZATION: Laparoscopic cholecystectomy performed by Dr. Dennis Camargo on November 01, 2017. HOSPITAL COURSE: The patient was placed on bowel rest. She subsequently had an abdominal MRI, which was unremarkable. She had a Gastroenterology consultation and they felt that her presentation was consistent with biliary pancreatitis. She had improvement of her lipase and resolution of her abdominal pain, and therefore she was taken to the operating room, where she underwent the laparoscopic cholecystectomy. She did well postoperatively. She was painfree and was feeling well, and wanted to go home tonight. Patient now has been discharged to home in good condition. She will follow up with me in a couple of weeks. She is encouraged to stay active at home, but avoid strenuous activity. She may follow a low fat diet at home. She may resume her home medications. ADDITIONAL MEDICATION: Percocet 1 p.o. q.4 hours p.r.n. pain. DICTATING PHYSICIAN: DENNIS CAMARGO M.D. [id number] PHY#: [id number] 2018 ID: [id number] JOB#: [id number] ACCT: [id number] cc:DENNIS CAMARGO M.D. >
== END 2017-11-01 21:15 | disposition home or self-care (01) | DRG 419 ==
LOC: OROUT 13:17 → EDSTATUS 15:30 → 4S 16:30 → OROUT 17:05 → 4S 17:05 → OROUT 11-01 21:15 → 4S 11-01 21:15
PROVIDERS: ADMIT Surgery; ATTEND Surgery
PROC: 0FT44ZZ Resection of Gallbladder, Percutaneous Endoscopic Approach (ICD-10-PCS; principal; 2017-11-01 12:00)
DX: K85.10 Biliary acute pancreatitis without necrosis or infection (principal); K82.8 Other specified diseases of gallbladder; M19.042 Primary osteoarthritis, left hand; M19.041 Primary osteoarthritis, right hand; F10.11 Alcohol abuse, in remission; Z87.891 Personal history of nicotine dependence; Z79.82 Long term (current) use of aspirin; Z79.899 Other long term (current) drug therapy; Z88.0 Allergy status to penicillin
CPT/HCPCS: 36415; 790; 80053; 80061; 81001; 83690; 85025; 85027; 88304; 94640; J0131; J1100; J1170; J1650; J1885; J1956; J2250; J2405; J2550; J2704; J3010; J3490

== ENCOUNTER 2017-11-05 09:56 | Emergency (ER) | payer OTHER ==
[2017-11-05] MEDS ORDERED: NORMAL SALINE 1000 ML 1,000 ML IV ONE ×2 (10:26→11:14)
[2017-11-05] MEDS ORDERED: ONDANSETRON HCL INJ/PF 4 MG/2 ML SDV IV ONE (10:27)
[2017-11-05] MEDS ORDERED: MORPHINE SULFATE 10 MG/ML INJ IV ONE (10:27)
--- NOTE | 2017-11-05 10:27 | ER Document Report ---
ED Medical Screen (RME) - General Chief Complaint: Abdominal Pain Stated Complaint: ABDOMINAL PAIN Time Seen by Provider: 11/05/17 10:26 Notes: Patient presents with severe abdominal pain nausea and vomiting. She states she had her gallbladder removed at this facility 3 days ago. She states since then she has been unable to eat and is having severe pain. TRAVEL OUTSIDE OF THE [place] IN LAST 30 DAYS: No - Related Data Allergies/Adverse Reactions: Penicillins Allergy (Intermediate, Verified 11/05/17 09:59) Hives Past Medical History - Social History Chew tobacco use (# tins/day): No Frequency of alcohol use: None Drug Abuse: None - Past Medical History Cardiac Medical History: Denies: Hx Coronary Artery Disease, Hx Heart Attack, Hx Hypertension Pulmonary Medical History: Denies: Hx Asthma, Hx Bronchitis, Hx COPD, Hx Pneumonia Neurological Medical History: Denies: Hx Cerebrovascular Accident, Hx Seizures Renal/ Medical History: Denies: Hx Peritoneal Dialysis Musculoskeltal Medical History: Reports Hx Arthritis - KASHIF. HANDS Past Surgical History: Reports: Hx Tubal Ligation - Immunizations Hx Diphtheria, Pertussis, Tetanus Vaccination: Yes History of Influenza Vaccine for 08/2017 - 01/2018 Season: No Physical Exam - Vital signs Vitals: Temp Pulse Resp BP Pulse Ox 97.4 F 124 H 22 H 118/90 H 99 11/05/17 10:02 11/05/17 10:02 11/05/17 10:02 11/05/17 10:02 11/05/17 10:02 Course - Vital Signs Vital signs: Temp Pulse Resp BP Pulse Ox 97.4 F 124 H 22 H 118/90 H 99 11/05/17 10:02 11/05/17 10:02 11/05/17 10:02 11/05/17 10:02 11/05/17 10:02
[2017-11-05 11:03] LABS: ABSOLUTE BASOPHILS # (AUTO) 0.1 10^3/uL (0.0-0.2); ABSOLUTE EOSINOPHILS # (AUTO) 0.2 10^3/uL (0.0-0.6); ABSOLUTE LYMPHOCYTES (AUTO) 2.5 10^3/uL (0.5-4.7); ABSOLUTE MONOCYTES (AUTO) 0.4 10^3/uL (0.1-1.4); ABSOLUTE NEUT (AUTO) 7.1 10^3/uL (1.7-8.2); BASOPHILS % (AUTO) 0.8 % (0-2); HEMATOCRIT 47.1 % (36.0-47.0); HEMOGLOBIN 16.5 g/dL (12.0-15.5); HGB HCT DIFFERENCE 2.4; LYMPHOCYTES % (AUTO) 24.2 % (13-45); MEAN CORPUSCULAR HEMOGLOBIN 31.1 pg (27.0-33.4); MEAN CORPUSCULAR HGB CONC 35.1 g/dL (32.0-36.0); MEAN CORPUSCULAR VOLUME 89 fl (80-97); MONOCYTES % (AUTO) 3.9 % (3-13); RED BLOOD COUNT 5.31 10^6/uL (3.72-5.28); RED CELL DISTRIBUTION WIDTH 13.6 % (11.5-14.0); SEGMENTED NEUTROPHILS % (AUTO) 69.1 % (42-78); WHITE BLOOD COUNT 10.3 10^3/uL (4.0-10.5)
[2017-11-05 11:28] LABS: ALANINE AMINOTRANSFERASE 560 U/L (9-52); ALBUMIN 5.1 g/dL (3.5-5.0); ALKALINE PHOSPHATASE 507 U/L (38-126); ASPARTATE AMINO TRANSFERASE 424 U/L (14-36); BILIRUBIN,DIRECT 0.5 mg/dL (0.0-0.4); BLOOD UREA NITROGEN 7 mg/dL (7-20); CALCIUM 9.9 mg/dL (8.4-10.2); CREATININE RESULT 0.81 mg/dL (0.52-1.25); GLUCOSE 86 mg/dL (75-110); LIPASE 492.4 U/L (23-300); POTASSIUM 4.2 mmol/L (3.6-5.0)
[2017-11-05 11:36] LABS: CARBON DIOXIDE 18 mmol/L (22-30); CHLORIDE 105 mmol/L (98-107); SODIUM 143.5 mmol/L (137-145)
[2017-11-05 11:39] LABS: ANION GAP 21 (5-19)
[2017-11-05 12:02] VITALS: BP 133/74
--- NOTE | 2017-11-05 13:00 | ER Document Report ---
ED General - General Chief Complaint: Abdominal Pain Stated Complaint: ABDOMINAL PAIN Time Seen by Provider: 11/05/17 10:26 TRAVEL OUTSIDE OF THE [place] IN LAST 30 DAYS: No - HPI Patient complains to provider of: Post abdominal pain Notes: Patient coming in for evaluation of postop abdominal pain. Patient had her gallbladder removed approximately 3 days ago. Patient states since that time has had severe abdominal pain nausea vomiting. Patient states she is passing gas has not had a bowel movement since leaving the hospital. Patient states she is unable to eat anything due to the severe abdominal pain she experiences whenever she is eating or drinking. Denies any fever upon my evaluation patient is holding her abdomen wincing in pain otherwise looks to be no obvious distress. Of note vital signs in triage showed tachycardia with shock index heart rate greater than systolic blood pressure. Patient does look dehydrated. - Related Data Allergies/Adverse Reactions: Penicillins Allergy (Intermediate, Verified 11/05/17 09:59) Hives Past Medical History - Social History Smoking Status: Never Smoker Chew tobacco use (# tins/day): No Frequency of alcohol use: None Drug Abuse: None Family History: Reviewed & Not Pertinent Patient has suicidal ideation: No Patient has homicidal ideation: No - Past Medical History Cardiac Medical History: Denies: Hx Coronary Artery Disease, Hx Heart Attack, Hx Hypertension Pulmonary Medical History: Denies: Hx Asthma, Hx Bronchitis, Hx COPD, Hx Pneumonia Neurological Medical History: Denies: Hx Cerebrovascular Accident, Hx Seizures Renal/ Medical History: Denies: Hx Peritoneal Dialysis Musculoskeltal Medical History: Reports Hx Arthritis - KASHIF. HANDS Past Surgical History: Reports: Hx Cholecystectomy, Hx Tubal Ligation - Immunizations Hx Diphtheria, Pertussis, Tetanus Vaccination: Yes Review of Systems - Review of Systems Constitutional: No symptoms reported EENT: No symptoms reported Cardiovascular: No symptoms reported Respiratory: No symptoms reported Gastrointestinal: Abdominal pain, Nausea, Vomiting Genitourinary: No symptoms reported Female Genitourinary: No symptoms reported Musculoskeletal: No symptoms reported Skin: No symptoms reported Hematologic/Lymphatic: No symptoms reported Neurological/Psychological: No symptoms reported -: Yes All other systems reviewed and negative Physical Exam - Vital signs Vitals: Temp Pulse Resp BP Pulse Ox 97.4 F 124 H 22 H 118/90 H 99 11/05/17 10:02 11/05/17 10:02 11/05/17 10:02 11/05/17 10:02 11/05/17 10:02 Interpretation: Normal - General General appearance: Appears well, Alert - HEENT Head: Normocephalic, Atraumatic Eyes: Normal Pupils: PERRL - Respiratory Respiratory status: No respiratory distress Chest status: Nontender Breath sounds: Normal Chest palpation: Normal - Cardiovascular Rhythm: Tachycardia Heart sounds: Normal auscultation Murmur: No - Abdominal Inspection: Normal Distension: No distension Bowel sounds: Normal Tenderness: Other - Patient has laparoscopic surgical scars are well-healed. Patient is tender to palpation throughout her entire abdomen however this seems to be appropriate for postsurgical pain. There is no signs of guarding or rebound. Organomegaly: No organomegaly - Back Back: Normal, Nontender - Extremities General upper extremity: Normal inspection, Nontender, Normal color, Normal ROM , Normal temperature General lower extremity: Normal inspection, Nontender, Normal color, Normal ROM , Normal temperature, Normal weight bearing. No: Brandy's sign - Neurological Neuro grossly intact: Yes Cognition: Normal Orientation: AAOx4 Yann Coma Scale Eye Opening: Spontaneous Yann Coma Scale Verbal: Oriented Herman Coma Scale Motor: Obeys Commands Herman Coma Scale Total: 15 Speech: Normal Motor strength normal: LUE, RUE, LLE, RLE Sensory: Normal - Psychological Associated symptoms: Normal affect, Normal mood - Skin Skin Temperature: Warm Skin Moisture: Dry Skin Color: Normal Course - Re-evaluation Re-evalutation: 11/05/17 12:57 Patient presented for post laparoscopic cholecystectomy abdominal pain. Laboratory studies that showed elevation LFTs. Patient's abdominal exam showed generalized tenderness. Lab work does not show any overt signs of infection patient afebrile. Upon arrival to the ER patient did have tachycardia and marginal blood pressure. Patient was given an IV dose of morphine in triage. Did discuss lab results with surgeon on-call Dr. Delarosa requesting a CT scan with oral and IV contrast. Patient refusing oral contrast. I did recontact the surgeon states that he was okay with a CT scan with contrast only IV. Went to inform the patient that we will be doing her CT scan with only IV and attempted to encourage the patient to drink oral contrast. Patient became irate stating that she was not going to drink anything. Patient states she would like another dose of pain medication that she is still in pain explained to the patient that her blood pressure is slightly improved I would like to obtain another blood pressure before giving her any further narcotics. Patient became irate again requesting initially to be transferred then requesting to leave the ER. I explained patient she can leave without having the testing done follow-up with the surgeon otherwise at this time lab work does show some signs of dehydration with the patient's history of passing gas and no bowel movement more likely patient is constipated. Patient's hemoglobin has improved prior to discharge no signs of anemia afebrile did not think patient has any postop infection at this time. Patient is within the right mind to make her own medical decisions understands the risk and benefits nurses try to have the patient sign AGAINST MEDICAL ADVICE patient refused her IV was taken out and patient was able to ambulate herself out of the ER without any distress. 11/05/17 15:10 - Vital Signs Vital signs: Temp Pulse Resp BP Pulse Ox 97.4 F 93 22 H 133/74 H 99 11/05/17 10:02 11/05/17 12:01 11/05/17 12:01 11/05/17 12:01 11/05/17 10:02 - Laboratory Result Diagrams: 11/05/17 10:41 11/05/17 10:41 Laboratory results interpreted by me: 11/05/17 11/05/17 10:41 10:41 RBC 5.31 H Hgb 16.5 H Hct 47.1 H Carbon Dioxide 18 L Anion Gap 21 H Direct Bilirubin 0.5 H AST 424 H ALT 560 H Alkaline Phosphatase 507 H Albumin 5.1 H Lipase 492.4 H Discharge - Discharge Clinical Impression: Postoperative generalized abdominal pain Condition: Good Disposition: AGAINST MEDICAL ADVICE Instructions: Abdominal Pain ([facility]) Referrals: JOSE L MERRILL MD [Primary Care Provider] - Follow up as needed
== END 2017-11-05 13:00 | disposition left against medical advice (07) ==
LOC: ER 09:56
DX: G89.18 Other acute postprocedural pain (principal); R10.84 Generalized abdominal pain; Z90.49 Acquired absence of other specified parts of digestive tract; R11.2 Nausea with vomiting, unspecified; R19.4 Change in bowel habit; R00.0 Tachycardia, unspecified; R79.89 Other specified abnormal findings of blood chemistry; Z88.0 Allergy status to penicillin; Z53.29 Procedure and treatment not carried out because of patient's decision for other reasons
CPT/HCPCS: 99283; 96361; 96374; 96375; 36415; 83690; 85025; 80053; J2270; J2405; J7030